=== PATIENT | male | born 1970 | race Hispanic/Latino ===

== ENCOUNTER 2018-07-22 08:30 | Emergency (ER) | payer SELFPAY ==
[2018-07-22] MEDS ORDERED: Ibuprofen 200 MG TAB ONE (09:54)
== END 2018-07-22 10:21 | disposition home or self-care (01) ==
LOC: ERS 08:30
DX: H60.91 Unspecified otitis externa, right ear (principal); E11.65 Type 2 diabetes mellitus with hyperglycemia; H66.91 Otitis media, unspecified, right ear
CPT/HCPCS: 36416; 87081; 87430; 87804; 99283

== ENCOUNTER 2018-11-08 16:24 | Emergency (ER) | payer SELFPAY ==
[2018-11-08 16:58] LABS: #Basophils 0.1 thou/uL (0.0-0.2); #Eosinphils 0.1 thou/uL (0.0-0.7); #Lymphocytes 1.3 thou/uL (1.20-3.40); #Monocytes 0.5 thou/uL (0.11-0.59); #Neutrophils 4.4 thou/uL (1.40-6.50); %Lymphocytes 20.1 % (21.0-51.0); %Monocytes 7.8 % (0.0-10.0); %Neutrophils 69.1 % (42.0-75.0); Hemoglobin 16.4 g/dL (14.0-18.0); Mean Corpuscular HGB CONC 33.1 g/dL (32.0-36.0); Mean Corpuscular Hemoglobin 32.5 pg (27.0-31.0); Mean Corpuscular Volume 98.2 fL (78.0-98.0); Mean Platelet Volume 8.4 fL (7.4-10.4); Platelet Count 173 thou/uL (130-400); RBC Distribution Width 11.5 % (11.5-14.5); Red Blood Cell (RBC) Count 5.03 mill/uL (4.70-6.10); White Blood Cell (WBC) Count 6.4 thou/uL (4.8-10.8)
[2018-11-08 17:22] LABS: ALT (SGPT) 31 U/L (8-55); AST (SGOT) 22 U/L (5-34); Alkaline Phosphatase 107 U/L (40-150); Anion Gap 15 mmol/L (10-20); BUN (Urea Nitrogen) 18 mg/dL (8.9-20.6); Bilirubin, Total 0.4 mg/dL (0.2-1.2); Calc. Creatinine Clearance 0 mL/min (70-130); Calcium 9.9 mg/dL (7.8-10.44); Carbon Dioxide 23 mmol/L (22-29); Chloride 92 mmol/L (98-107); Estimated GFR-MDRD 50; Potassium 4.3 mmol/L (3.5-5.1); Sodium 126 mmol/L (136-145)
[2018-11-08 17:38] LABS: Glucose 757 mg/dL (70-105)
[2018-11-08 18:02] LABS: Bacteria/HPF None Seen HPF (None Seen); Bilirubin Negative (Negative); Blood, Urine Negative (Negative); Clarity Clear (Clear); Glucose, Urine (Dipstick) Greater than 1000 mg/dL (Negative); Leukocyte 75 Leu/uL (Negative); Nitrite Negative (Negative); Protein, Urine (Dipstick) Negative (Neg-Trace); RBC/HPF 0-3 HPF (0-3); Squamous Epithelial 0-3 HPF (0-3); Urobilinogen Normal mg/dL (Less than 2)
[2018-11-08] MEDS ORDERED: Insulin Regular 300 UNITS/3 ML VIAL ONE (18:03)
== END 2018-11-08 19:30 | disposition home or self-care (01) ==
LOC: ERS 16:24
DX: E11.65 Type 2 diabetes mellitus with hyperglycemia (principal); K21.9 Gastro-esophageal reflux disease without esophagitis; E78.5 Hyperlipidemia, unspecified; I10 Essential (primary) hypertension; F17.210 Nicotine dependence, cigarettes, uncomplicated; Z79.899 Other long term (current) drug therapy; Z79.4 Long term (current) use of insulin
CPT/HCPCS: 36415; 36416; 80053; 81003; 81015; 82010; 85025; 96361; 96374; J1815

== ENCOUNTER 2018-11-29 18:50 | Emergency (ER) | payer SELFPAY ==
[2018-11-29] MEDS ORDERED: Lidocaine 1% w/Epinephrine 1:100K 20 ML VIAL ONE (19:59)
== END 2018-11-29 21:00 | disposition home or self-care (01) ==
LOC: ERS 18:50
DX: L02.214 Cutaneous abscess of groin (principal); E11.9 Type 2 diabetes mellitus without complications; K21.9 Gastro-esophageal reflux disease without esophagitis; E78.5 Hyperlipidemia, unspecified; E78.00 Pure hypercholesterolemia, unspecified; I10 Essential (primary) hypertension; F17.210 Nicotine dependence, cigarettes, uncomplicated
CPT/HCPCS: 10060; J2001

== ENCOUNTER 2019-03-28 09:14 | Emergency (ER) | payer SELFPAY ==
[2019-03-28 10:36] LABS: Bilirubin Negative (Negative); Blood, Urine Trace (Negative); Glucose, Urine (Dipstick) 500 mg/dL (Negative); Leukocyte Negative (Negative); Nitrite Negative (Negative); Protein, Urine (Dipstick) Negative (Neg-Trace); Urobilinogen 0.2 mg/dL (Less than 2)
[2019-03-28 10:37] LABS: Clarity Clear (Clear)
[2019-03-28 10:46] LABS: RBC/HPF 0-3 HPF (0-3); Squamous Epithelial 0-3 HPF (0-3)
[2019-03-28 10:47] LABS: Bacteria/HPF None Seen HPF (None Seen)
== END 2019-03-28 12:10 | disposition home or self-care (01) ==
LOC: ERS 09:14
DX: N47.1 Phimosis (principal); E11.9 Type 2 diabetes mellitus without complications; K21.9 Gastro-esophageal reflux disease without esophagitis; E78.5 Hyperlipidemia, unspecified; E78.00 Pure hypercholesterolemia, unspecified; I10 Essential (primary) hypertension; F17.210 Nicotine dependence, cigarettes, uncomplicated; Z79.82 Long term (current) use of aspirin; Z79.4 Long term (current) use of insulin; Z79.899 Other long term (current) drug therapy
CPT/HCPCS: 81003; 81015; 99283

== ENCOUNTER 2021-09-23 11:48 | Emergency (ER) | payer SELFPAY ==
[2021-09-23 12:25] LABS: #Basophils 0.1 thou/uL (0.0-0.2); #Eosinphils 0.1 thou/uL (0.0-0.7); #Lymphocytes 1.4 thou/uL (1.20-3.40); #Monocytes 0.6 thou/uL (0.11-0.59); #Neutrophils 5.3 thou/uL (1.40-6.50); %Basophils 1.1 % (0.0-1.0); %Eosinophils 1.3 % (0.0-10.0); %Monocytes 8.5 % (0.0-10.0); %Neutrophils 70.1 % (42.0-75.0); Mean Corpuscular HGB CONC 34.1 g/dL (32.0-36.0); Mean Corpuscular Hemoglobin 31.8 pg (27.0-31.0); Mean Corpuscular Volume 93.5 fL (78.0-98.0); Mean Platelet Volume 8.3 fL (7.4-10.4); Platelet Count 184 thou/uL (130-400); RBC Distribution Width 11.8 % (11.5-14.5); Red Blood Cell (RBC) Count 5.36 mill/uL (4.70-6.10); White Blood Cell (WBC) Count 7.5 thou/uL (4.8-10.8)
[2021-09-23 12:34] LABS: Bilirubin Negative (Negative); Blood, Urine Negative (Negative); Clarity Clear (Clear); Glucose, Urine (Dipstick) Greater than 1000 mg/dL (Negative); Ketone, Urine Negative (Negative); Leukocyte Negative Leu/uL (Negative); Nitrite Negative (Negative); Protein, Urine (Dipstick) Negative (Neg-Trace); Specific Gravity, Urine 1.048 (1.002-1.036); Urobilinogen Normal mg/dL (Less than 2)
[2021-09-23 12:56] LABS: ALT (SGPT) 21 U/L (8-55); AST (SGOT) 22 U/L (5-34); Albumin 3.7 g/dL (3.5-5.0); Alkaline Phosphatase 99 U/L (40-110); Anion Gap 11 mmol/L (10-20); BUN (Urea Nitrogen) 10 mg/dL (8.4-25.7); Bilirubin, Total 0.4 mg/dL (0.2-1.2); Calc. Creatinine Clearance 0 mL/min (70-130); Calcium 8.8 mg/dL (7.8-10.44); Carbon Dioxide 21 mmol/L (22-29); Chloride 103 mmol/L (98-107); Globulin 3.6 g/dL (2.4-3.5); Glucose 380 mg/dL (70-105); Potassium 3.8 mmol/L (3.5-5.1); Protein, Total 7.3 g/dL (6.0-8.3); Sodium 131 mmol/L (136-145)
[2021-09-23] MEDS ORDERED: Ondansetron PF 4 MG/2 ML Vial ONE (13:40)
[2021-09-23] MEDS ORDERED: Dicyclomine 20 MG/2 ML VIAL ONE (15:21)
== END 2021-09-23 15:29 | disposition home or self-care (01) ==
LOC: ERS 11:48
DX: R11.2 Nausea with vomiting, unspecified (principal); E11.9 Type 2 diabetes mellitus without complications; K21.9 Gastro-esophageal reflux disease without esophagitis; E78.5 Hyperlipidemia, unspecified; E78.00 Pure hypercholesterolemia, unspecified; I10 Essential (primary) hypertension; F17.210 Nicotine dependence, cigarettes, uncomplicated; Z79.899 Other long term (current) drug therapy
CPT/HCPCS: 36416; 80053; 81003; 85025; 96372; 96374; J0500; J2405

== ENCOUNTER 2022-10-31 12:27 | Inpatient (IN) | payer BC, SELFPAY ==
[2022-10-31 13:31] LABS: #Basophils 0.1 thou/uL (0.0-0.2); #Eosinphils 0.1 thou/uL (0.0-0.7); #Neutrophils 8.5 thou/uL (1.40-6.50); %Basophils 0.4 % (0.0-1.0); %Eosinophils 0.6 % (0.0-10.0); %Lymphocytes 19.4 % (21.0-51.0); %Monocytes 8.4 % (0.0-10.0); %Neutrophils 70.6 % (42.0-75.0); Hematocrit 48.5 % (42.0-52.0); Hemoglobin 15.7 g/dL (14.0-18.0); Mean Corpuscular HGB CONC 32.4 g/dL (32.0-36.0); Mean Corpuscular Hemoglobin 29.5 pg (27.0-31.0); Mean Corpuscular Volume 91.2 fl (78.0-98.0); Mean Platelet Volume 10.1 fL (7.4-10.4); Platelet Count 234 10x3/uL (130-400); RBC Distribution Width 13.7 % (11.5-14.5); Red Blood Cell (RBC) Count 5.32 mill/uL (4.70-6.10); White Blood Cell (WBC) Count 12.1 10x3/uL (4.8-10.8)
[2022-10-31 13:56] LABS: ALT (SGPT) 21 U/L (8-55); AST (SGOT) 16 U/L (5-34); Albumin 4.1 g/dL (3.5-5.0); Alkaline Phosphatase 102 U/L (40-110); Anion Gap 14 mmol/L (10-20); BUN (Urea Nitrogen) 34 mg/dL (8.4-25.7); Bilirubin, Total 0.8 mg/dL (0.2-1.2); Calc. Creatinine Clearance 0 mL/min (70-130); Calcium 9.3 mg/dL (7.8-10.44); Carbon Dioxide 25 mmol/L (22-29); Chloride 96 mmol/L (98-107); Estimated GFR 52; Globulin 3.1 g/dL (2.4-3.5); Glucose 211 mg/dL (70-105); Lipase 39 U/L (8-78); Potassium 4.4 mmol/L (3.5-5.1); Protein, Total 7.2 g/dL (6.0-8.3); Sodium 131 mmol/L (136-145)
[2022-10-31] MEDS ORDERED: Acetaminophen 650 MG Suppository PR PRN (16:28)
[2022-10-31] MEDS ORDERED: Aspirin 325 MG TAB PO SCH (16:30)
[2022-10-31] MEDS ORDERED: Dextrose 50% Abboject 50 ML SYRINGE SLOW IVP PRN (16:31)
[2022-10-31] MEDS ORDERED: Dextrose 5% in Water 1,000 ML IV PRN (16:31)
[2022-10-31] MEDS ORDERED: Glucagon 1 MG/ML KIT IM PRN (16:31)
[2022-10-31 17:37] VITALS: BMI 46.5
[2022-10-31 18:19] LABS: Troponin I 0.021 ng/mL (< 0.028)
[2022-10-31] MEDS: HumaLOG 300 UNITS/3 ML VIAL SC PRN (18:25)
[2022-10-31] MEDS: Gabapentin 400 MG CAP PO SCH (20:15)
[2022-10-31] MEDS: Atorvastatin Calcium 40 MG TAB PO SCH (20:16)
[2022-10-31] MEDS: HumuLIN 70/30 100 Unit/ ml 10 ml Vial SC SCH (20:41)
[2022-10-31 21:27] LABS: Troponin I Less than 0.010 ng/mL (< 0.028)
[2022-11-01] MEDS ORDERED: Famotidine 20 MG TAB PO SCH (02:30)
[2022-11-01 04:59] LABS: #Basophils 0.1 thou/uL (0.0-0.2); #Eosinphils 0.1 thou/uL (0.0-0.7); #Monocytes 0.7 thou/uL (0.11-0.59); #Neutrophils 5.6 thou/uL (1.40-6.50); %Basophils 0.6 % (0.0-1.0); %Eosinophils 0.7 % (0.0-10.0); %Lymphocytes 23.7 % (21.0-51.0); %Monocytes 8.1 % (0.0-10.0); %Neutrophils 66.1 % (42.0-75.0); Hematocrit 48.2 % (42.0-52.0); Hemoglobin 15.9 g/dL (14.0-18.0); Mean Corpuscular Hemoglobin 30.4 pg (27.0-31.0); Mean Corpuscular Volume 92.2 fl (78.0-98.0); Mean Platelet Volume 10.1 fL (7.4-10.4); Platelet Count 209 10x3/uL (130-400); RBC Distribution Width 13.7 % (11.5-14.5); Red Blood Cell (RBC) Count 5.23 mill/uL (4.70-6.10); White Blood Cell (WBC) Count 8.4 10x3/uL (4.8-10.8)
[2022-11-01 05:47] LABS: Triglycerides 1408 mg/dL (Less than 150)
[2022-11-01 05:51] LABS: Anion Gap 19 mmol/L (10-20); BUN (Urea Nitrogen) 41 mg/dL (8.4-25.7); Calc. Creatinine Clearance 105 mL/min (70-130); Calcium 8.9 mg/dL (7.8-10.44); Carbon Dioxide 20 mmol/L (22-29); Cardiac Risk 6.7 (Less than 4.5); Chloride 95 mmol/L (98-107); Cholesterol 161 mg/dl (< 200 Desired); Estimated GFR 49; Glucose 287 mg/dL (70-105); HDL Cholesterol 24 mg/dL (>60 Neg Risk); Potassium 5.1 mmol/L (3.5-5.1); Sodium 129 mmol/L (136-145)
[2022-11-01] MEDS: HumaLOG 300 UNITS/3 ML VIAL SC PRN ×3 (06:10→17:09)
[2022-11-01] MEDS: Empagliflozin 10 MG TAB PO SCH (08:15)
[2022-11-01] MEDS: glipiZIDE 5 MG TAB PO SCH (08:15)
[2022-11-01] MEDS: Aspirin 81 mg Enteric Coated Tablet PO SCH (08:15)
[2022-11-01] MEDS: HumuLIN 70/30 100 Unit/ ml 10 ml Vial SC SCH ×2 (08:16→20:55)
[2022-11-01] MEDS: Gabapentin 300 MG CAP PO SCH (08:23)
[2022-11-01] MEDS ORDERED: Lisinopril 20 MG TAB PO SCH (09:00)
[2022-11-01] MEDS: Sodium Chloride 0.9% 1,000 ML IV SCH (16:00)
[2022-11-01] MEDS: Acetaminophen 325 MG TAB PO PRN (17:07)
[2022-11-01 19:34] LABS: Anion Gap 17 mmol/L (10-20); BUN (Urea Nitrogen) 36 mg/dL (8.4-25.7); Calc. Creatinine Clearance 122 mL/min (70-130); Calcium 9.1 mg/dL (7.8-10.44); Carbon Dioxide 19 mmol/L (22-29); Chloride 98 mmol/L (98-107); Estimated GFR 58; Glucose 327 mg/dL (70-105); Magnesium 2.3 mg/dL (1.6-2.6); Potassium 4.8 mmol/L (3.5-5.1); Sodium 129 mmol/L (136-145)
[2022-11-01] MEDS: Gabapentin 400 MG CAP PO SCH (20:31)
[2022-11-01] MEDS: Atorvastatin Calcium 40 MG TAB PO SCH (20:32)
[2022-11-01] MEDS: Famotidine 20 MG TAB PO SCH (20:55)
[2022-11-02] MEDS: Sodium Chloride 0.9% 1,000 ML IV SCH ×2 (04:50→20:16)
[2022-11-02 05:28] LABS: #Eosinphils 0.1 thou/uL (0.0-0.7); #Monocytes 0.7 thou/uL (0.11-0.59); #Neutrophils 4.3 thou/uL (1.40-6.50); %Basophils 0.6 % (0.0-1.0); %Lymphocytes 26.7 % (21.0-51.0); %Monocytes 9.5 % (0.0-10.0); %Neutrophils 61.3 % (42.0-75.0); Hematocrit 47.3 % (42.0-52.0); Hemoglobin 15.3 g/dL (14.0-18.0); Mean Corpuscular HGB CONC 32.3 g/dL (32.0-36.0); Mean Corpuscular Hemoglobin 29.7 pg (27.0-31.0); Mean Corpuscular Volume 91.7 fl (78.0-98.0); Mean Platelet Volume 10.2 fL (7.4-10.4); Platelet Count 180 10x3/uL (130-400); RBC Distribution Width 13.4 % (11.5-14.5); Red Blood Cell (RBC) Count 5.16 mill/uL (4.70-6.10)
[2022-11-02 05:51] LABS: Anion Gap 14 mmol/L (10-20); BUN (Urea Nitrogen) 29 mg/dL (8.4-25.7); Calc. Creatinine Clearance 148 mL/min (70-130); Calcium 8.8 mg/dL (7.8-10.44); Carbon Dioxide 22 mmol/L (22-29); Chloride 101 mmol/L (98-107); Estimated GFR 74; Glucose 227 mg/dL (70-105); Potassium 4.3 mmol/L (3.5-5.1); Sodium 133 mmol/L (136-145)
[2022-11-02] MEDS: HumaLOG 300 UNITS/3 ML VIAL SC PRN ×3 (06:15→16:46)
[2022-11-02] MEDS: Famotidine 20 MG TAB PO SCH ×2 (08:45→20:16)
[2022-11-02] MEDS: Gabapentin 300 MG CAP PO SCH (08:45)
[2022-11-02] MEDS: Aspirin 81 mg Enteric Coated Tablet PO SCH (08:46)
[2022-11-02] MEDS: glipiZIDE 5 MG TAB PO SCH (08:46)
[2022-11-02] MEDS: Empagliflozin 10 MG TAB PO SCH (08:46)
[2022-11-02] MEDS: HumuLIN 70/30 100 Unit/ ml 10 ml Vial SC SCH ×2 (08:47→20:22)
[2022-11-02] MEDS ORDERED: Sodium Chloride 0.9% 1,000 ML IV SCH (12:15)
[2022-11-02] MEDS: Gabapentin 400 MG CAP PO SCH (20:14)
[2022-11-02] MEDS: Acetaminophen 325 MG TAB PO PRN (20:14)
[2022-11-02] MEDS: Atorvastatin Calcium 40 MG TAB PO SCH (20:16)
[2022-11-03 05:30] LABS: #Eosinphils 0.1 thou/uL (0.0-0.7); #Monocytes 0.7 thou/uL (0.11-0.59); #Neutrophils 4.4 thou/uL (1.40-6.50); %Basophils 0.6 % (0.0-1.0); %Eosinophils 0.8 % (0.0-10.0); %Monocytes 10.4 % (0.0-10.0); %Neutrophils 62.1 % (42.0-75.0); Hematocrit 47.5 % (42.0-52.0); Hemoglobin 15.5 g/dL (14.0-18.0); Mean Corpuscular HGB CONC 32.6 g/dL (32.0-36.0); Mean Corpuscular Hemoglobin 29.6 pg (27.0-31.0); Mean Corpuscular Volume 90.8 fl (78.0-98.0); Mean Platelet Volume 10.3 fL (7.4-10.4); Platelet Count 182 10x3/uL (130-400); RBC Distribution Width 13.5 % (11.5-14.5); Red Blood Cell (RBC) Count 5.23 mill/uL (4.70-6.10); White Blood Cell (WBC) Count 7.1 10x3/uL (4.8-10.8)
[2022-11-03 05:49] LABS: Hemoglobin A1c 10.3 % (4.0-6.0)
[2022-11-03] MEDS: Aspirin 81 mg Enteric Coated Tablet PO SCH (05:50)
[2022-11-03] MEDS: Gabapentin 300 MG CAP PO SCH (05:50)
[2022-11-03] MEDS: Famotidine 20 MG TAB PO SCH ×2 (05:50→21:51)
[2022-11-03 05:56] LABS: Anion Gap 13 mmol/L (10-20); BUN (Urea Nitrogen) 23 mg/dL (8.4-25.7); Calc. Creatinine Clearance 159 mL/min (70-130); Calcium 9.2 mg/dL (7.8-10.44); Carbon Dioxide 23 mmol/L (22-29); Chloride 106 mmol/L (98-107); Estimated GFR 81; Glucose 244 mg/dL (70-105); Potassium 4.5 mmol/L (3.5-5.1); Sodium 137 mmol/L (136-145)
[2022-11-03] MEDS ORDERED: Communication Order-Pharmacy FS SCH (06:00)
[2022-11-03] MEDS ORDERED: Sodium Chloride 0.9% 1,000 ML IV SCH ×2 (06:00→17:30)
[2022-11-03] MEDS ORDERED: Lidocaine 1% (PF) 30 ML VIAL ONE ×2 (07:16→11:42)
[2022-11-03] MEDS ORDERED: Nitroglycerin 50 MG/250 ML BOT 0 ML ONE (07:16)
[2022-11-03] MEDS ORDERED: Heparin 10,000 UNITS/ 10 ML VIAL ONE ×3 (07:16→12:58)
[2022-11-03] MEDS ORDERED: fentaNYL 50 mcg/mL 1 mL Vial ONE ×2 (07:17→12:22)
[2022-11-03] MEDS ORDERED: Midazolam HCl 2 mg/2 ml Vial ONE ×2 (07:17→12:22)
[2022-11-03] MEDS ORDERED: Iopamidol-370 76% 500 ML MDV (1 ML CHARGE) ONE (09:15)
[2022-11-03] MEDS ORDERED: Iopamidol 370 76% 100 ML VIAL ONE (09:22)
[2022-11-03] MEDS: glipiZIDE 5 MG TAB PO SCH (11:08)
[2022-11-03] MEDS: HumuLIN 70/30 100 Unit/ ml 10 ml Vial SC SCH ×2 (11:08→21:53)
[2022-11-03] MEDS: Empagliflozin 10 MG TAB PO SCH (11:08)
[2022-11-03] MEDS ORDERED: Verapamil 5 MG/2 ML VIAL ONE ×2 (11:42→11:51)
[2022-11-03] MEDS ORDERED: Nitroglycerin 50 MG/250 ML BOT 250 ML ONE (11:43)
[2022-11-03] MEDS ORDERED: Adenosine 6 MG/2 ML VIAL ONE (11:57)
[2022-11-03] MEDS ORDERED: TICAGRELOR 90 MG TABLET ONE (13:22)
[2022-11-03] MEDS: Sodium Chloride 0.9% 1,000 ML IV SCH (14:09)
[2022-11-03] MEDS ORDERED: Nitroglycerin 0.4 MG TAB (25 Tab Bottle) SL SCH (16:45)
[2022-11-03] MEDS ORDERED: Nitroglycerin 0.4 MG TAB (25 Tab Bottle) SL PRN (17:27)
[2022-11-03] MEDS ORDERED: Loperamide HCl 2 MG CAP PO PRN (18:01)
[2022-11-03] MEDS: HumaLOG 300 UNITS/3 ML VIAL SC PRN ×2 (18:47→21:56)
[2022-11-03] MEDS: Acetaminophen 325 MG TAB PO PRN (20:11)
[2022-11-03] MEDS ORDERED: Metoprolol Tartrate 25 MG TAB PO SCH (21:00)
[2022-11-03] MEDS: Gabapentin 400 MG CAP PO SCH (21:49)
[2022-11-03] MEDS: Atorvastatin Calcium 40 MG TAB PO SCH (21:49)
[2022-11-03] MEDS ORDERED: HYDROcodone/Acetaminophen 5/325 mg Tablet PO PRN (22:58)
[2022-11-04 05:47] LABS: #Eosinphils 0.1 thou/uL (0.0-0.7); #Monocytes 0.8 thou/uL (0.11-0.59); #Neutrophils 5.8 thou/uL (1.40-6.50); %Basophils 0.5 % (0.0-1.0); %Lymphocytes 22.9 % (21.0-51.0); %Monocytes 8.9 % (0.0-10.0); %Neutrophils 65.5 % (42.0-75.0); Hematocrit 48.3 % (42.0-52.0); Hemoglobin 15.6 g/dL (14.0-18.0); Mean Corpuscular HGB CONC 32.3 g/dL (32.0-36.0); Mean Corpuscular Hemoglobin 29.3 pg (27.0-31.0); Mean Corpuscular Volume 90.6 fl (78.0-98.0); Mean Platelet Volume 10.5 fL (7.4-10.4); Platelet Count 211 10x3/uL (130-400); RBC Distribution Width 13.7 % (11.5-14.5); Red Blood Cell (RBC) Count 5.33 mill/uL (4.70-6.10); White Blood Cell (WBC) Count 8.9 10x3/uL (4.8-10.8)
[2022-11-04 06:16] LABS: Anion Gap 15 mmol/L (10-20); BUN (Urea Nitrogen) 19 mg/dL (8.4-25.7); Calc. Creatinine Clearance 167 mL/min (70-130); Calcium 9.2 mg/dL (7.8-10.44); Carbon Dioxide 20 mmol/L (22-29); Chloride 106 mmol/L (98-107); Estimated GFR 85; Glucose 220 mg/dL (70-105); Potassium 4.4 mmol/L (3.5-5.1); Sodium 137 mmol/L (136-145)
[2022-11-04] MEDS: HumaLOG 300 UNITS/3 ML VIAL SC PRN ×3 (06:23→15:53)
[2022-11-04] MEDS ORDERED: TICAGRELOR 90 MG TABLET PO SCH (09:00)
[2022-11-04] MEDS ORDERED: Metoprolol Tartrate 25 MG TAB PO SCH (09:00)
[2022-11-04] MEDS: Empagliflozin 10 MG TAB PO SCH (09:09)
[2022-11-04] MEDS: Famotidine 20 MG TAB PO SCH (09:10)
[2022-11-04] MEDS: Aspirin 81 mg Enteric Coated Tablet PO SCH (09:10)
[2022-11-04] MEDS: Gabapentin 300 MG CAP PO SCH (09:11)
[2022-11-04] MEDS: glipiZIDE 5 MG TAB PO SCH (09:11)
[2022-11-04] MEDS: HumuLIN 70/30 100 Unit/ ml 10 ml Vial SC SCH (09:12)
[2022-11-04 13:26] LABS: Troponin I 0.057 ng/mL (< 0.028)
[2022-11-04 15:57] VITALS: BP 134/80; TEMP 97.3
== END 2022-11-04 16:09 | disposition home or self-care (01) | DRG 249 ==
LOC: ERS 12:27 → 2SW 14:13 → OBSVTOIN 11-02 12:08
PROVIDERS: ADMIT Family Medicine; ATTEND Internal Medicine
PROC: 02703DZ Dilation of Coronary Artery, One Artery with Intraluminal Device, Percutaneous Approach (ICD-10-PCS; principal; 2022-11-03)
PROC: 4A023N7 Measurement of Cardiac Sampling and Pressure, Left Heart, Percutaneous Approach (ICD-10-PCS; 2022-11-03)
PROC: B2111ZZ Fluoroscopy of Multiple Coronary Arteries using Low Osmolar Contrast (ICD-10-PCS; 2022-11-03)
DX: I25.110 Atherosclerotic heart disease of native coronary artery with unstable angina pectoris (principal); Z68.42 Body mass index [BMI] 45.0-49.9, adult; N17.9 Acute kidney failure, unspecified; I12.9 Hypertensive chronic kidney disease with stage 1 through stage 4 chronic kidney disease, or unspecified chronic kidney disease; E11.22 Type 2 diabetes mellitus with diabetic chronic kidney disease; N18.30 Chronic kidney disease, stage 3 unspecified; E66.01 Morbid (severe) obesity due to excess calories; I49.3 Ventricular premature depolarization; E78.2 Mixed hyperlipidemia; E11.40 Type 2 diabetes mellitus with diabetic neuropathy, unspecified; G47.33 Obstructive sleep apnea (adult) (pediatric); Z79.4 Long term (current) use of insulin; Z79.899 Other long term (current) drug therapy; Z79.82 Long term (current) use of aspirin; Z87.891 Personal history of nicotine dependence
CPT/HCPCS: 36415; 36416; 71045; 71275; 80048; 80053; 80061; 83036; 83690; 83735; 83880; 84484; 85025; 85347; 92928; 92978; 93005; 93010; 93306; 93454; 93923; 94760; 96372; C1753; C1769; C1874; C1887; C9600; G0378; J0153; J1644; J1650; J1815; J2001; J2250; J3010; J7050; Q9967

== ENCOUNTER 2023-03-27 13:43 | Emergency (ER) | payer BC ==
[2023-03-27] MEDS ORDERED: Oxymetazoline HCl 0.05% (30 ML BOT) ONE (14:06)
[2023-03-27] MEDS ORDERED: Acetaminophen 500 MG TAB ONE (15:29)
== END 2023-03-27 17:19 | disposition home or self-care (01) ==
LOC: ERS 13:43
DX: R04.0 Epistaxis (principal); I10 Essential (primary) hypertension; I25.10 Atherosclerotic heart disease of native coronary artery without angina pectoris; E11.9 Type 2 diabetes mellitus without complications; E78.00 Pure hypercholesterolemia, unspecified; Z79.02 Long term (current) use of antithrombotics/antiplatelets; Z87.891 Personal history of nicotine dependence; Z79.899 Other long term (current) drug therapy; Z79.4 Long term (current) use of insulin; Z79.82 Long term (current) use of aspirin; Z79.84 Long term (current) use of oral hypoglycemic drugs
CPT/HCPCS: 30903

== ENCOUNTER 2023-10-10 10:39 | Emergency (ER) | payer BC ==
[2023-10-10] MEDS ORDERED: Acetaminophen 500 MG TAB ONE (11:10)
== END 2023-10-10 11:46 | disposition home or self-care (01) ==
LOC: ERS 10:39
DX: M79.671 Pain in right foot (principal); E11.9 Type 2 diabetes mellitus without complications; I10 Essential (primary) hypertension; Z79.82 Long term (current) use of aspirin; Z79.84 Long term (current) use of oral hypoglycemic drugs; Z79.899 Other long term (current) drug therapy